=== PATIENT | male | born 1990 | race Caucasian/White ===

== ENCOUNTER 2019-03-20 07:13 | Outpatient (CLI) | payer OTHER ==
[2019-03-20] VITALS (7 sets, daily range): BP systolic 108–117; BP diastolic 47–69; PULSE 67–82; TEMP 98–98.3
[~2019-03-20] VITALS: Ht 185.4 cm; Wt 111.7 kg
[2019-03-20 07:55] LABS: HEMATOCRIT 44.7 % (42.0-52.0); MEAN CELL VOLUME 88 fl (80.0-100.0); MEAN CORPUSCULAR HEMOGLOBIN 30 pg (27.0-31.0); MEAN CORPUSCULAR HGB CONC 34 g/dl (33.0-37.0); MEAN PLATELET VOLUME 10.3 fl (7.4-10.4); PLATELET COUNT 171 K/mm3 (130-400); RED BLOOD COUNT 5.08 M/mm3 (4.20-5.60); REDCELL DISTRIBUTION WIDTH-CV 12.2 % (11.5-14.5)
[2019-03-20 08:04] LABS: ALBUMIN 4.2 gm/dL (3.5-5.0); BILIRUBIN,TOTAL 0.5 mg/dL (0.0-1.0); CALCIUM 9.6 mg/dL (8.4-10.2); CREATININE, serum 0.98 (0.66-1.25); TOTAL PROTEIN 7.5 gm/dL (6.4-8.2)
== END 2019-03-20 16:38 | disposition home or self-care (01) ==
LOC: EUO 07:13
PROVIDERS: Internal Medicine Gastroenterology
DX: K50.90 Crohn's disease, unspecified, without complications (principal); Z79.899 Other long term (current) drug therapy
CPT/HCPCS: J1200; J1745; J2930; J7050

== ENCOUNTER 2019-05-20 07:21 | Outpatient (CLI) | payer OTHER ==
[2019-05-20 07:48] LABS: HEMATOCRIT 45.3 % (42.0-52.0); HEMOGLOBIN 15.1 g/dl (13.5-18.0); MEAN CELL VOLUME 89 fl (80.0-100.0); MEAN CORPUSCULAR HEMOGLOBIN 30 pg (27.0-31.0); MEAN CORPUSCULAR HGB CONC 33 g/dl (33.0-37.0); MEAN PLATELET VOLUME 10.2 fl (7.4-10.4); PLATELET COUNT 180 K/mm3 (130-400); RED BLOOD COUNT 5.08 M/mm3 (4.20-5.60); REDCELL DISTRIBUTION WIDTH-CV 11.9 % (11.5-14.5)
[2019-05-20 07:55] LABS: ALBUMIN 4.2 gm/dL (3.5-5.0); BILIRUBIN,TOTAL 0.8 mg/dL (0.0-1.0); CALCIUM 9.2 mg/dL (8.4-10.2); CREATININE, serum 1.06 (0.66-1.25); POTASSIUM 3.9 mmol/L (3.4-5.0); TOTAL PROTEIN 7.1 gm/dL (6.4-8.2)
[2019-05-20 15:09] VITALS: BP 113/54; PULSE 64; TEMP 97.7
[2019-05-20 15:39] VITALS: BP 108/47; PULSE 65; TEMP 97.7
[2019-05-20 16:09] VITALS: BP 111/47; PULSE 54; TEMP 97.7
[2019-05-20 16:39] VITALS: BP 110/56; PULSE 62; TEMP 97.7
[2019-05-20 16:55] VITALS: BP 110/60; PULSE 59; TEMP 97.7
== END 2019-05-20 17:05 | disposition home or self-care (01) ==
LOC: EUO 07:21
PROVIDERS: Internal Medicine Gastroenterology
DX: K50.90 Crohn's disease, unspecified, without complications (principal); Z79.899 Other long term (current) drug therapy
CPT/HCPCS: J1200; J1745; J2930; J7050

== ENCOUNTER 2019-07-24 07:18 | Outpatient (CLI) | payer OTHER ==
[~2019-07-24] VITALS: Ht 185.4 cm; Wt 111.4 kg
[2019-07-24 07:56] LABS: HEMATOCRIT 43.6 % (42.0-52.0); HEMOGLOBIN 14.8 g/dl (13.5-18.0); MEAN CELL VOLUME 88 fl (80.0-100.0); MEAN CORPUSCULAR HEMOGLOBIN 30 pg (27.0-31.0); MEAN CORPUSCULAR HGB CONC 34 g/dl (33.0-37.0); MEAN PLATELET VOLUME 9.8 fl (7.4-10.4); PLATELET COUNT 181 K/mm3 (130-400); RED BLOOD COUNT 4.94 M/mm3 (4.20-5.60); REDCELL DISTRIBUTION WIDTH-CV 12.1 % (11.5-14.5)
[2019-07-24 08:06] LABS: ALBUMIN 4.3 gm/dL (3.5-5.0); BILIRUBIN,TOTAL 0.7 mg/dL (0.0-1.0); CALCIUM 9.1 mg/dL (8.4-10.2); CREATININE, serum 0.94 (0.66-1.25); POTASSIUM 4.3 mmol/L (3.4-5.0); TOTAL PROTEIN 7.3 gm/dL (6.4-8.2)
[2019-07-24 14:30] VITALS: BP 105/52; PULSE 66; TEMP 98.1
[2019-07-24 15:00] VITALS: BP 107/63; PULSE 67; TEMP 98.1
[2019-07-24 15:30] VITALS: BP 112/59; PULSE 74; TEMP 98.1
[2019-07-24 16:00] VITALS: BP 110/64; PULSE 71; TEMP 98.1
[2019-07-24 16:24] VITALS: BP 113/67; PULSE 84; TEMP 98.2
== END 2019-07-24 16:25 | disposition home or self-care (01) ==
LOC: EUO 07:18
PROVIDERS: Internal Medicine Gastroenterology
DX: K50.90 Crohn's disease, unspecified, without complications (principal); Z79.899 Other long term (current) drug therapy
CPT/HCPCS: J1745; J2930; J7050

== ENCOUNTER 2019-09-24 12:05 | Outpatient (CLI) | payer OTHER ==
[~2019-09-24] VITALS: Ht 185.4 cm; Wt 109.5 kg
[2019-09-24 12:29] LABS: HEMOGLOBIN 15.4 g/dl (13.5-18.0); MEAN CELL VOLUME 87 fl (80.0-100.0); MEAN CORPUSCULAR HEMOGLOBIN 30 pg (27.0-31.0); MEAN CORPUSCULAR HGB CONC 34 g/dl (33.0-37.0); PLATELET COUNT 206 K/mm3 (130-400); RED BLOOD COUNT 5.19 M/mm3 (4.20-5.60)
[2019-09-24 12:43] LABS: ALBUMIN 4.8 gm/dL (3.5-5.0); BILIRUBIN,TOTAL 0.7 mg/dL (0.0-1.0); CALCIUM 9.6 mg/dL (8.4-10.2); CREATININE, serum 0.99 (0.66-1.25); POTASSIUM 3.9 mmol/L (3.4-5.0); TOTAL PROTEIN 7.9 gm/dL (6.4-8.2)
[2019-09-24 13:30] VITALS: BP 114/67; PULSE 70; TEMP 97.7
[2019-09-24 14:00] VITALS: BP 111/53; PULSE 66; TEMP 97.7
[2019-09-24 14:30] VITALS: BP 109/64; PULSE 69; TEMP 97.7
[2019-09-24 15:00] VITALS: BP 110/62; PULSE 68; TEMP 97.7
[2019-09-24 15:29] VITALS: BP 107/53; PULSE 79; TEMP 97.7
== END 2019-09-24 15:31 | disposition home or self-care (01) ==
LOC: EUO 12:05
PROVIDERS: Internal Medicine Gastroenterology
DX: K50.90 Crohn's disease, unspecified, without complications (principal); Z79.899 Other long term (current) drug therapy
CPT/HCPCS: J1200; J1745; J2930; J7050

== ENCOUNTER 2019-11-19 12:47 | Outpatient (CLI) | payer OTHER ==
[~2019-11-19] VITALS: Ht 185.4 cm; Wt 111.9 kg
[2019-11-19 13:28] LABS: HEMATOCRIT 44.4 % (42.0-52.0); MEAN CELL VOLUME 87 fl (80.0-100.0); MEAN CORPUSCULAR HEMOGLOBIN 29 pg (27.0-31.0); MEAN CORPUSCULAR HGB CONC 34 g/dl (33.0-37.0); MEAN PLATELET VOLUME 11.4 fl (7.4-10.4); PLATELET COUNT 143 K/mm3 (130-400); RED BLOOD COUNT 5.11 M/mm3 (4.20-5.60)
[2019-11-19 13:43] LABS: ALBUMIN 4.7 gm/dL (3.5-5.0); BILIRUBIN,TOTAL 0.9 mg/dL (0.0-1.0); CALCIUM 9.4 mg/dL (8.4-10.2); CREATININE, serum 0.96 (0.66-1.25); TOTAL PROTEIN 7.5 gm/dL (6.4-8.2)
[2019-11-19 14:49] VITALS: BP 114/63; PULSE 68; TEMP 98
[2019-11-19 15:20] VITALS: BP 129/68; PULSE 79
[2019-11-19 15:50] VITALS: BP 107/55; PULSE 65; TEMP 97.6
[2019-11-19 16:20] VITALS: BP 114/59; PULSE 77; TEMP 98.1
[2019-11-19 17:05] VITALS: BP 106/58; PULSE 68; TEMP 97.8
== END 2019-11-19 17:08 | disposition home or self-care (01) ==
LOC: EUO 12:47
PROVIDERS: Internal Medicine Gastroenterology
DX: K50.90 Crohn's disease, unspecified, without complications (principal); Z79.899 Other long term (current) drug therapy
CPT/HCPCS: J1200; J1745; J2930; J7050

== ENCOUNTER 2020-05-05 06:51 | Outpatient (CLI) | payer OTHER ==
[~2020-05-05] VITALS: Ht 185.4 cm; Wt 106.0 kg
[2020-05-05 07:33] LABS: HEMATOCRIT 45.3 % (42.0-52.0); HEMOGLOBIN 15.1 g/dl (13.5-18.0); MEAN CELL VOLUME 89 fl (80.0-100.0); MEAN CORPUSCULAR HEMOGLOBIN 30 pg (27.0-31.0); MEAN CORPUSCULAR HGB CONC 33 g/dl (33.0-37.0); MEAN PLATELET VOLUME 9.7 fl (7.4-10.4); PLATELET COUNT 179 K/mm3 (130-400); RED BLOOD COUNT 5.08 M/mm3 (4.20-5.60)
[2020-05-05 07:37] LABS: ALBUMIN 4.6 gm/dL (3.5-5.0); BILIRUBIN,TOTAL 0.9 mg/dL (0.0-1.0); CALCIUM 9.5 mg/dL (8.4-10.2); CREATININE, serum 1.11 (0.66-1.25); POTASSIUM 4.4 mmol/L (3.4-5.0); TOTAL PROTEIN 7.7 gm/dL (6.4-8.2)
[2020-05-05] MEDS ORDERED: REMICADE V100 MG/VIA IV (13:25)
[2020-05-05 13:33] VITALS: BP 126/71; PULSE 64; TEMP 98.4
[2020-05-05 14:20] VITALS: BP 110/49; PULSE 58; TEMP 98.4
[2020-05-05 14:50] VITALS: BP 114/52; PULSE 58; TEMP 98.2
[2020-05-05 15:20] VITALS: BP 118/53; PULSE 54
[2020-05-05 15:50] VITALS: BP 112/66; PULSE 54; TEMP 98.2
[2020-05-05 16:20] VITALS: BP 104/61; PULSE 54
== END 2020-05-05 16:39 | disposition home or self-care (01) ==
LOC: EUO 06:51
PROVIDERS: Internal Medicine Gastroenterology
DX: K50.90 Crohn's disease, unspecified, without complications (principal); Z79.899 Other long term (current) drug therapy
CPT/HCPCS: J1745; J7050

== ENCOUNTER → 2020-07-02 | Outpatient (CLI) | payer OTHER ==
[~2020-07-02] VITALS: Ht 185.4 cm; Wt 105.0 kg
[~2020-07-02] MED LIST: DIFLUCAN150 MG PO; NIZORAL SHAMPO120 M1 TP; REMICADE V100 MG/VIA IV; SELSUN 120 ML120 ML TOP
[2020-07-02 06:29] LABS: HEMATOCRIT 46.5 % (42.0-52.0); HEMOGLOBIN 15.6 g/dl (13.5-18.0); MEAN CELL VOLUME 89 fl (80.0-100.0); MEAN CORPUSCULAR HEMOGLOBIN 30 pg (27.0-31.0); MEAN CORPUSCULAR HGB CONC 34 g/dl (33.0-37.0); PLATELET COUNT 208 K/mm3 (130-400); RED BLOOD COUNT 5.23 M/mm3 (4.20-5.60); REDCELL DISTRIBUTION WIDTH-CV 11.9 % (11.5-14.5)
[2020-07-02 06:37] LABS: ALBUMIN 4.7 gm/dL (3.5-5.0); BILIRUBIN,TOTAL 0.9 mg/dL (0.0-1.0); CALCIUM 9.5 mg/dL (8.4-10.2); CREATININE, serum 1.06 (0.66-1.25); POTASSIUM 4.4 mmol/L (3.4-5.0); TOTAL PROTEIN 7.8 gm/dL (6.4-8.2)
[2020-07-02 13:29] VITALS: BP 128/66; PULSE 57; TEMP 98
[2020-07-02 14:00] VITALS: BP 112/60; PULSE 48
[2020-07-02 14:30] VITALS: BP 102/54; PULSE 56
[2020-07-02 15:00] VITALS: BP 106/58; PULSE 58; TEMP 98
[2020-07-02 15:30] VITALS: BP 107/58; PULSE 53
[2020-07-02 16:00] VITALS: BP 112/59; PULSE 49
--- NOTE | 2020-07-02 16:32 | NUR ---
Pt discharged at 1605 after IV had been DC'd with catheter intact. Pt tolerated infusion well. Message left on pt's phone at this time with appt info for next infusion.
== END ==
LOC: EUO 06-30 13:30 → COL.LAB 06:09 → EUO 13:30
PROVIDERS: Internal Medicine Gastroenterology
DX: K50.90 Crohn's disease, unspecified, without complications (principal); Z79.899 Other long term (current) drug therapy
CPT/HCPCS: J1745; J7050

== ENCOUNTER 2020-08-27 07:51 | Outpatient (CLI) | payer OTHER ==
[~2020-08-27] VITALS: Ht 185.4 cm; Wt 106.0 kg
[2020-08-27 08:11] LABS: HEMATOCRIT 46.5 % (42.0-52.0); HEMOGLOBIN 15.5 g/dl (13.5-18.0); MEAN CELL VOLUME 89 fl (80.0-100.0); MEAN CORPUSCULAR HEMOGLOBIN 30 pg (27.0-31.0); MEAN CORPUSCULAR HGB CONC 33 g/dl (33.0-37.0); MEAN PLATELET VOLUME 10.3 fl (7.4-10.4); PLATELET COUNT 202 K/mm3 (130-400); RED BLOOD COUNT 5.25 M/mm3 (4.20-5.60)
[2020-08-27 08:23] LABS: ALBUMIN 4.7 gm/dL (3.5-5.0); BILIRUBIN,TOTAL 1.1 mg/dL (0.0-1.0); CALCIUM 9.5 mg/dL (8.4-10.2); CREATININE, serum 1.07 (0.66-1.25); POTASSIUM 4.1 mmol/L (3.4-5.0); TOTAL PROTEIN 7.7 gm/dL (6.4-8.2)
[2020-08-27 08:52] LABS: THYROID STIMULATING HORMONE 1.69 uIU/mL (0.465-4.680)
[2020-08-27 13:50] VITALS: BP 117/58; PULSE 58; TEMP 98.2
[2020-08-27 14:20] VITALS: BP 121/54; PULSE 51; TEMP 97
[2020-08-27 14:50] VITALS: BP 111/48; PULSE 60; TEMP 98
[2020-08-27 15:20] VITALS: BP 104/48; PULSE 47; TEMP 98
[2020-08-27 15:50] VITALS: BP 114/60; PULSE 47; TEMP 98.2
== END 2020-08-27 16:37 | disposition home or self-care (01) ==
LOC: EUO 07:51
PROVIDERS: Internal Medicine Gastroenterology
DX: K50.90 Crohn's disease, unspecified, without complications (principal); Z79.899 Other long term (current) drug therapy
CPT/HCPCS: J7050

== ENCOUNTER 2020-10-22 07:34 | Outpatient (CLI) | payer OTHER ==
[~2020-10-22] VITALS: Ht 185.4 cm; Wt 107.0 kg
[2020-10-22 07:11] LABS: HEMATOCRIT 45.4 % (42.0-52.0); HEMOGLOBIN 15.5 g/dl (13.5-18.0); MEAN CELL VOLUME 87 fl (80.0-100.0); MEAN CORPUSCULAR HEMOGLOBIN 30 pg (27.0-31.0); MEAN CORPUSCULAR HGB CONC 34 g/dl (33.0-37.0); PLATELET COUNT 218 K/mm3 (130-400); RED BLOOD COUNT 5.21 M/mm3 (4.20-5.60); REDCELL DISTRIBUTION WIDTH-CV 11.9 % (11.5-14.5)
[2020-10-22 07:21] LABS: ALBUMIN 4.5 gm/dL (3.5-5.0); CALCIUM 9.5 mg/dL (8.4-10.2); CREATININE, serum 1.04 (0.66-1.25); TOTAL PROTEIN 7.5 gm/dL (6.4-8.2)
[2020-10-22 14:39] VITALS: BP 120/73; PULSE 63; TEMP 98.3
[2020-10-22 15:15] VITALS: BP 110/81; PULSE 63
[2020-10-22 15:45] VITALS: BP 102/61; PULSE 58; TEMP 98
[2020-10-22 16:15] VITALS: BP 101/68; PULSE 55; TEMP 97.8
[2020-10-22 16:30] VITALS: BP 100/69; PULSE 58
== END 2020-10-22 16:46 | disposition home or self-care (01) ==
LOC: EUO 07:34
PROVIDERS: Internal Medicine Gastroenterology
DX: K50.90 Crohn's disease, unspecified, without complications (principal); Z79.899 Other long term (current) drug therapy
CPT/HCPCS: J7050

== ENCOUNTER 2020-12-30 06:15 | Outpatient (CLI) | payer OTHER ==
[~2020-12-30] VITALS: Ht 185.4 cm; Wt 108.9 kg
[2020-12-30 07:01] LABS: HEMATOCRIT 44.5 % (42.0-52.0); HEMOGLOBIN 15.1 g/dl (13.5-18.0); MEAN CELL VOLUME 89 fl (80.0-100.0); MEAN CORPUSCULAR HEMOGLOBIN 30 pg (27.0-31.0); MEAN CORPUSCULAR HGB CONC 34 g/dl (33.0-37.0); MEAN PLATELET VOLUME 10.3 fl (7.4-10.4); PLATELET COUNT 208 K/mm3 (130-400); RED BLOOD COUNT 5.01 M/mm3 (4.20-5.60); REDCELL DISTRIBUTION WIDTH-CV 12.1 % (11.5-14.5)
[2020-12-30 07:06] LABS: ALBUMIN 4.3 gm/dL (3.5-5.0); CALCIUM 9.1 mg/dL (8.4-10.2); CREATININE, serum 1.05 (0.66-1.25); TOTAL PROTEIN 7.5 gm/dL (6.4-8.2)
[2020-12-30 14:45] VITALS: BP 106/57; PULSE 62; TEMP 98.1
[2020-12-30 15:15] VITALS: BP 109/56; PULSE 59
[2020-12-30 15:45] VITALS: BP 102/65; PULSE 58
[2020-12-30 16:15] VITALS: BP 107/64; PULSE 60
[2020-12-30 17:00] VITALS: BP 112/57; PULSE 56
== END 2020-12-30 17:27 | disposition home or self-care (01) ==
LOC: EUO 06:15
PROVIDERS: Internal Medicine Gastroenterology
DX: K50.90 Crohn's disease, unspecified, without complications (principal); Z79.899 Other long term (current) drug therapy
CPT/HCPCS: J7050; Q5103

== ENCOUNTER 2021-03-25 07:34 | Outpatient (CLI) | payer OTHER ==
[~2021-03-25] VITALS: Ht 185.4 cm; Wt 109.1 kg
[2021-03-25 08:01] LABS: ALBUMIN 4.2 gm/dL (3.5-5.0); BILIRUBIN,TOTAL 0.8 mg/dL (0.0-1.0); CALCIUM 9.3 mg/dL (8.4-10.2); CREATININE, serum 0.95 (0.66-1.25); TOTAL PROTEIN 7.4 gm/dL (6.4-8.2)
[2021-03-25 08:04] LABS: HEMATOCRIT 45.7 % (42.0-52.0); HEMOGLOBIN 15.3 g/dl (13.5-18.0); MEAN CELL VOLUME 89 fl (80.0-100.0); MEAN CORPUSCULAR HEMOGLOBIN 30 pg (27.0-31.0); MEAN CORPUSCULAR HGB CONC 34 g/dl (33.0-37.0); MEAN PLATELET VOLUME 10.5 fl (7.4-10.4); PLATELET COUNT 199 K/mm3 (130-400); RED BLOOD COUNT 5.13 M/mm3 (4.20-5.60)
[2021-03-25 14:10] VITALS: BP 109/64; PULSE 71; TEMP 98.1
[2021-03-25 14:40] VITALS: BP 102/66; PULSE 63
[2021-03-25 15:10] VITALS: BP 97/56; PULSE 65
[2021-03-25 15:40] VITALS: BP 107/66; PULSE 65; TEMP 98.9
[2021-03-25 16:10] VITALS: BP 107/68; PULSE 66; TEMP 97.8
[2021-03-25 16:28] VITALS: BP 107/63; PULSE 63
== END 2021-03-25 16:30 | disposition home or self-care (01) ==
LOC: EUO 07:34
PROVIDERS: Internal Medicine Gastroenterology
DX: K50.90 Crohn's disease, unspecified, without complications (principal); Z79.899 Other long term (current) drug therapy
CPT/HCPCS: J1745; J7050

== ENCOUNTER 2021-06-18 07:46 | Outpatient (CLI) | payer OTHER ==
[2021-06-18 08:13] LABS: HEMATOCRIT 46.4 % (42.0-52.0); MEAN CELL VOLUME 87 fl (80.0-100.0); MEAN CORPUSCULAR HEMOGLOBIN 30 pg (27.0-31.0); MEAN CORPUSCULAR HGB CONC 35 g/dl (33.0-37.0); MEAN PLATELET VOLUME 10.3 fl (7.4-10.4); PLATELET COUNT 207 K/mm3 (130-400); RED BLOOD COUNT 5.33 M/mm3 (4.20-5.60); REDCELL DISTRIBUTION WIDTH-CV 11.9 % (11.5-14.5)
[2021-06-18 08:19] LABS: ALBUMIN 4.7 gm/dL (3.5-5.0); BILIRUBIN,TOTAL 0.7 mg/dL (0.0-1.0); CALCIUM 9.3 mg/dL (8.4-10.2); CREATININE, serum 1.15 (0.66-1.25); POTASSIUM 3.9 mmol/L (3.4-5.0); TOTAL PROTEIN 8.3 gm/dL (6.4-8.2)
[2021-06-18 13:58] VITALS: BP 116/71; PULSE 70; TEMP 98.5
[2021-06-18 14:15] VITALS: BP 106/67; PULSE 65
[2021-06-18 14:30] VITALS: BP 100/64; PULSE 67
[2021-06-18 15:00] VITALS: BP 108/67; PULSE 65
[2021-06-18 15:30] VITALS: BP 107/71; PULSE 63
[2021-06-18 16:00] VITALS: BP 107/68; PULSE 56
== END 2021-06-18 16:32 ==
LOC: EUO 07:46
PROVIDERS: Internal Medicine Gastroenterology
DX: K51.90 Ulcerative colitis, unspecified, without complications (principal)
CPT/HCPCS: J7050; Q5103

== ENCOUNTER 2021-08-16 06:12 | Outpatient (CLI) | payer OTHER ==
[2021-08-16 06:26] LABS: BASO % 0.7 % (0.0-2.0); EOS # 0.1 K/mm3 (0.0-0.7); EOS % 1.8 % (0-4.0); GRAN # 2.3 K/mm3 (1.4-6.5); GRAN % 41.6 % (42.2-75.2); LYMPH # 2.5 K/mm3 (1.2-3.4); LYMPH % 44.7 % (20.0-51.0); MEAN CELL VOLUME 90 fl (80.0-100.0); MEAN CORPUSCULAR HEMOGLOBIN 30 pg (27.0-31.0); MEAN CORPUSCULAR HGB CONC 33 g/dl (33.0-37.0); MEAN PLATELET VOLUME 10.3 fl (7.4-10.4); MONO # 0.6 K/mm3 (0.1-0.6); PLATELET COUNT 197 K/mm3 (130-400); RED BLOOD COUNT 4.99 M/mm3 (4.20-5.60)
[2021-08-16 07:08] LABS: BILIRUBIN,TOTAL 0.7 mg/dL (0.2-1.2); CALCIUM 9.3 mg/dL (8.4-10.2); CREATININE, serum 1.06 mg/dL (0.72-1.25); POTASSIUM 4.3 mmol/L (3.5-4.5); TOTAL PROTEIN 6.9 gm/dL (6.2-8.1)
--- NOTE | 2021-08-16 14:30 | NUR ---
Pt refuses all premedication,reports he usually doesnt take them.
[2021-08-16 14:50] VITALS: BP 114/79; PULSE 63; TEMP 98.7
[2021-08-16 15:30] VITALS: BP 109/67; PULSE 81
[2021-08-16 16:00] VITALS: BP 110/72; PULSE 60
[2021-08-16 16:30] VITALS: BP 105/72; PULSE 66
[2021-08-16 17:05] VITALS: BP 114/79; PULSE 63
== END 2021-08-16 17:06 ==
LOC: EUO 06:12
PROVIDERS: Internal Medicine Gastroenterology
DX: K51.90 Ulcerative colitis, unspecified, without complications (principal)
CPT/HCPCS: J1745; J7050; Q5103

== ENCOUNTER 2021-10-20 15:00 | Outpatient (RCR) | payer OTHER ==
[2021-10-18 07:47] LABS: BASO # 0.1 K/mm3 (0.0-0.2); EOS # 0.1 K/mm3 (0.0-0.7); EOS % 2.7 % (0.0-4.0); GRAN # 2.3 K/mm3 (1.4-6.5); GRAN % 45.3 % (42.2-75.2); HEMATOCRIT 45.3 % (42.0-52.0); HEMOGLOBIN 15.5 g/dl (13.5-18.0); LYMPH # 2.1 K/mm3 (1.2-3.4); LYMPH % 40.1 % (20.0-51.0); MEAN CELL VOLUME 88 fl (80.0-100.0); MEAN CORPUSCULAR HEMOGLOBIN 30 pg (27-31); MEAN CORPUSCULAR HGB CONC 34 g/dl (33.0-37.0); MEAN PLATELET VOLUME 10.1 fl (7.4-10.4); MONO # 0.6 K/mm3 (0.1-0.6); MONO % 10.9 % (1.7-9.3); PLATELET COUNT 194 K/mm3 (130-400); RED BLOOD COUNT 5.14 M/mm3 (4.20-5.60)
[2021-10-18 08:05] LABS: ALBUMIN 4.4 gm/dL (3.5-5.0); BILIRUBIN,TOTAL 1.3 mg/dL (0.2-1.2); CALCIUM 9.2 mg/dL (8.4-10.2); CREATININE, serum 1.16 mg/dL (0.72-1.25); TOTAL PROTEIN 7.4 gm/dL (6.2-8.1)
[~2021-10-20] VITALS: Ht 185.4 cm; Wt 105.0 kg
[2021-10-20 15:00] VITALS: BP 128/73; PULSE 60; TEMP 97.4
[2021-10-20 15:30] VITALS: BP 137/64; PULSE 56; TEMP 97.4
[2021-10-20 16:00] VITALS: BP 122/69; PULSE 60; TEMP 97.4
[2021-10-20 16:30] VITALS: BP 138/58; PULSE 64; TEMP 97.4
[2021-10-20 17:00] VITALS: BP 131/62; PULSE 72; TEMP 97.4
[2021-10-20 17:35] VITALS: BP 132/64; PULSE 69; TEMP 97.4
== END 2021-10-20 17:41 | disposition home or self-care (01) ==
LOC: EUO 15:00
PROVIDERS: Internal Medicine Gastroenterology
DX: K51.90 Ulcerative colitis, unspecified, without complications (principal)
CPT/HCPCS: J1200; J2930; J7040; Q5103

== ENCOUNTER 2021-12-21 07:22 | Outpatient (CLI) | payer OTHER ==
[2021-12-21] VITALS (7 sets, daily range): BP systolic 114–123; BP diastolic 60–74; PULSE 70–103; TEMP 98.3–98.4
[~2021-12-21] VITALS: Ht 185.4 cm; Wt 108.3 kg
[2021-12-21 07:39] LABS: BASO # 0.1 K/mm3 (0.0-0.2); BASO % 0.8 % (0.0-2.0); EOS # 0.1 K/mm3 (0.0-0.7); EOS % 2.1 % (0.0-4.0); GRAN # 2.6 K/mm3 (1.4-6.5); GRAN % 41.1 % (42.2-75.2); HEMATOCRIT 44.3 % (42.0-52.0); HEMOGLOBIN 15.1 g/dl (13.5-18.0); LYMPH # 2.8 K/mm3 (1.2-3.4); LYMPH % 43.7 % (20.0-51.0); MEAN CELL VOLUME 88 fl (80.0-100.0); MEAN CORPUSCULAR HEMOGLOBIN 30 pg (27-31); MEAN CORPUSCULAR HGB CONC 34 g/dl (33.0-37.0); MEAN PLATELET VOLUME 10.4 fl (7.4-10.4); MONO # 0.8 K/mm3 (0.1-0.6); MONO % 12.1 % (1.7-9.3); PLATELET COUNT 209 K/mm3 (130-400); RED BLOOD COUNT 5.06 M/mm3 (4.20-5.60); REDCELL DISTRIBUTION WIDTH-CV 12.2 % (11.5-14.5)
[2021-12-21 07:53] LABS: ALBUMIN 4.3 gm/dL (3.5-5.0); BILIRUBIN,TOTAL 0.8 mg/dL (0.2-1.2); CALCIUM 8.8 mg/dL (8.4-10.2); CREATININE, serum 1.11 mg/dL (0.72-1.25); POTASSIUM 3.9 mmol/L (3.5-4.5); TOTAL PROTEIN 6.8 gm/dL (6.2-8.1)
== END 2021-12-21 16:37 ==
LOC: EUO 07:22
PROVIDERS: Internal Medicine Gastroenterology
DX: K51.90 Ulcerative colitis, unspecified, without complications (principal); Z79.899 Other long term (current) drug therapy
CPT/HCPCS: J7040; Q5103

== ENCOUNTER 2022-02-15 06:51 | Outpatient (CLI) | payer OTHER ==
[~2022-02-15] VITALS: Ht 185.4 cm; Wt 108.5 kg
[2022-02-15] VITALS (8 sets, daily range): BP systolic 107–127; BP diastolic 61–72; PULSE 58–76; TEMP 97.7–98.5
[2022-02-15 07:18] LABS: BASO % 0.6 % (0.0-2.0); EOS # 0.1 K/mm3 (0.0-0.7); EOS % 1.5 % (0.0-4.0); GRAN # 3.2 K/mm3 (1.4-6.5); HEMATOCRIT 44.2 % (42.0-52.0); LYMPH # 2.8 K/mm3 (1.2-3.4); LYMPH % 40.9 % (20.0-51.0); MEAN CELL VOLUME 89 fl (80.0-100.0); MEAN CORPUSCULAR HEMOGLOBIN 30 pg (27-31); MEAN CORPUSCULAR HGB CONC 34 g/dl (33.0-37.0); MEAN PLATELET VOLUME 10.3 fl (7.4-10.4); MONO # 0.8 K/mm3 (0.1-0.6); MONO % 10.9 % (1.7-9.3); PLATELET COUNT 198 K/mm3 (130-400); RED BLOOD COUNT 4.98 M/mm3 (4.20-5.60); REDCELL DISTRIBUTION WIDTH-CV 11.9 % (11.5-14.5)
[2022-02-15 07:30] LABS: ALBUMIN 4.2 gm/dL (3.5-5.0); CALCIUM 8.7 mg/dL (8.4-10.2); CREATININE, serum 1.11 mg/dL (0.72-1.25); POTASSIUM 4.1 mmol/L (3.5-4.5); TOTAL PROTEIN 7.1 gm/dL (6.2-8.1)
== END 2022-02-15 18:30 | disposition home or self-care (01) ==
LOC: EUO 06:51
PROVIDERS: Internal Medicine Gastroenterology
DX: K51.90 Ulcerative colitis, unspecified, without complications (principal)
CPT/HCPCS: J1200; J7040; Q5103

== ENCOUNTER 2022-04-13 07:31 | Outpatient (CLI) | payer OTHER ==
[2022-04-13] VITALS (7 sets, daily range): BP systolic 123–148; BP diastolic 66–87; PULSE 57–76; TEMP 98.7
[~2022-04-13] VITALS: Ht 185.4 cm; Wt 110.8 kg
[2022-04-13 08:05] LABS: BASO # 0.1 K/mm3 (0.0-0.2); BASO % 0.8 % (0.0-2.0); EOS # 0.1 K/mm3 (0.0-0.7); EOS % 1.7 % (0.0-4.0); GRAN # 3.1 K/mm3 (1.4-6.5); GRAN % 48.9 % (42.2-75.2); HEMATOCRIT 45.9 % (42.0-52.0); HEMOGLOBIN 15.8 g/dl (13.5-18.0); LYMPH # 2.4 K/mm3 (1.2-3.4); LYMPH % 37.4 % (20.0-51.0); MEAN CELL VOLUME 88 fl (80.0-100.0); MEAN CORPUSCULAR HEMOGLOBIN 30 pg (27-31); MEAN CORPUSCULAR HGB CONC 34 g/dl (33.0-37.0); MEAN PLATELET VOLUME 10.4 fl (7.4-10.4); MONO # 0.7 K/mm3 (0.1-0.6); PLATELET COUNT 193 K/mm3 (130-400); RED BLOOD COUNT 5.22 M/mm3 (4.20-5.60); REDCELL DISTRIBUTION WIDTH-CV 11.9 % (11.5-14.5)
[2022-04-13 08:08] LABS: ALBUMIN 4.3 gm/dL (3.5-5.0); BILIRUBIN,TOTAL 0.9 mg/dL (0.2-1.2); CALCIUM 9.4 mg/dL (8.4-10.2); CREATININE, serum 1.09 mg/dL (0.72-1.25); POTASSIUM 4.2 mmol/L (3.5-4.5); TOTAL PROTEIN 7.6 gm/dL (6.2-8.1)
== END 2022-04-13 17:52 | disposition home or self-care (01) ==
LOC: EUO 07:31
PROVIDERS: Internal Medicine Gastroenterology
DX: K51.90 Ulcerative colitis, unspecified, without complications (principal)
CPT/HCPCS: J1200; J7040; Q5103

== ENCOUNTER 2022-06-10 06:00 | Outpatient (CLI) | payer OTHER ==
[~2022-06-10] VITALS: Ht 185.4 cm; Wt 111.2 kg
[2022-06-10 06:18] LABS: BASO # 0.1 K/mm3 (0.0-0.2); BASO % 0.7 % (0.0-2.0); EOS # 0.1 K/mm3 (0.0-0.7); EOS % 1.3 % (0.0-4.0); GRAN # 2.8 K/mm3 (1.4-6.5); GRAN % 40.4 % (42.2-75.2); HEMATOCRIT 46.1 % (42.0-52.0); HEMOGLOBIN 15.8 g/dl (13.5-18.0); LYMPH # 3.1 K/mm3 (1.2-3.4); LYMPH % 45.3 % (20.0-51.0); MEAN CELL VOLUME 89 fl (80.0-100.0); MEAN CORPUSCULAR HEMOGLOBIN 30 pg (27-31); MEAN CORPUSCULAR HGB CONC 34 g/dl (33.0-37.0); MEAN PLATELET VOLUME 10.2 fl (7.4-10.4); MONO # 0.8 K/mm3 (0.1-0.6); MONO % 12.2 % (1.7-9.3); PLATELET COUNT 194 K/mm3 (130-400); RED BLOOD COUNT 5.19 M/mm3 (4.20-5.60); REDCELL DISTRIBUTION WIDTH-CV 11.9 % (11.5-14.5)
[2022-06-10 06:34] LABS: ALBUMIN 4.2 gm/dL (3.5-5.0); BILIRUBIN,TOTAL 0.8 mg/dL (0.2-1.2); CALCIUM 9.4 mg/dL (8.4-10.2); CREATININE, serum 1.06 mg/dL (0.72-1.25); TOTAL PROTEIN 7.3 gm/dL (6.2-8.1)
[2022-06-10 16:55] VITALS: BP 146/90; PULSE 86; TEMP 98
[2022-06-10 17:25] VITALS: BP 140/77; PULSE 96; TEMP 98
== END 2022-06-10 17:55 | disposition home or self-care (01) ==
LOC: EUO 06:00
PROVIDERS: Internal Medicine Gastroenterology
DX: K51.919 Ulcerative colitis, unspecified with unspecified complications (principal)
CPT/HCPCS: J1200; J7040; Q5103